=== PATIENT | female | born 1985 | race African-American/Black ===

== ENCOUNTER 2016-12-07 18:27 | Emergency (ER) | payer SELFPAY ==
[~2016-12-07] VITALS: Ht 162.6 cm; Wt 62.0 kg
[2016-12-07 18:28] VITALS: BP 122/67; PULSE 84; RESP 14; TEMP 98.1; O2SAT 97
[2016-12-07] MEDS ORDERED: AMOX500T PO (20:09)
--- NOTE | 2016-12-07 20:12 | PD ---
HPI Chief Complaint: Cold / Flu Symptoms Time Seen by Provider: 20:10 Travel History International Travel<30 days: No Contact w/Intl Traveler<30days: No Traveled to known affect area: No History of Present Illness HPI 30-year-old black female presents to emergency department requesting evaluation of sore throat. She states that she's been sick since Friday. She has had subjective fever and chills, earache, sore throat, congestion and general malaise. She denies any shortness of breath or wheezing. No nausea vomiting. No bowel pain or diarrhea. She states that this is similar symptoms that she has had strep throat in the past. PFSH Past Medical History Arthritis: Yes (BACK PROBLEMS) Bipolar Disorder: Yes Anxiety: Yes Depression: Yes Diabetes: No Diminished Hearing: No GERD: Yes Hepatitis: Yes (B) Psychiatric: Yes (PTSD, INTERMITTENTLY COMPLIANT W/ MEDS) Reproductive: Yes (ENDOMETRIOSIS) Immunizations Current: No Migraines: Yes ?: Not : 2 Para: 2 Miscarriage: 0 : 0 Tubal Ligation: Yes Past Surgical History Other Surgery: Yes (CYSTECTOMY LEFT WRIST) Social History Alcohol Use: No Tobacco Use: Yes (11/25 PPD) Substance Use: Yes (MARIJUANA) Allergies-Medications (Allergen,Severity, Reaction): Coded Allergies: Haldol (Verified Allergy, Severe, 12/07/16) JAW LOCKS UP Uncoded Allergies: FISH (Allergy, Severe, Nausea/Vomiting, 04/10/15) VOMITING AND DIARRHEA Reported Meds & Prescriptions Reported Meds & Active Scripts Active No Active Prescriptions or Reported Medications Review of Systems Except as stated in HPI: all other systems reviewed are Neg Physical Exam Narrative GENERAL: Well-developed, well-nourished in no acute distress. Nontoxic appearing. HEAD: Normocephalic, atraumatic. EYES: Pupils equal round and reactive. Extraocular motions intact. No scleral icterus. No injection or drainage. ENT: TMs clear without erythema. The external auditory canals clear. Nose: clear . Posterior pharynx is erythematous and moist. Positive tonsillar edema with white exudate. Uvula midline. Airway patent. NECK: Trachea midline.Supple, nontender, moves head freely. No central bony tenderness or spasm. Positive tonsillar and cervical adenopathy. CARDIOVASCULAR: Regular rate and rhythm without murmurs, gallops, or rubs. RESPIRATORY: Clear to auscultation. Breath sounds equal bilaterally. No wheezes , rales, or rhonchi. GASTROINTESTINAL: Abdomen soft, non-tender, nondistended. No hepato-splenomegaly , or palpable masses. No guarding. EXTREMITIES: No clubbing, cyanosis, or edema. No joint tenderness, effusion, or edema noted. BACK: Nontender without deformity or crepitance. No flank tenderness. Data Data Last Documented VS Vital Signs Date Time Temp Pulse Resp B/P Pulse Ox O2 Delivery O2 Flow Rate FiO2 12/07/16 18:28 98.1 84 14 122/67 97 MDM Medical Decision Making Medical Screen Exam Complete: Yes Emergency Medical Condition: Yes Medical Record Reviewed: Yes Differential Diagnosis MDM: High Differential diagnoses: Strep throat, viral pharyngitis, mono, peritonsillar abscess, retropharyngeal abscess, Tony's angina Narrative Course This is acute pharyngitis Diagnosis Primary Impression: Acute pharyngitis Qualified Code: J02.9 - Acute pharyngitis, unspecified etiology Patient Instructions: General Instructions Additional Instructions: Rest. Force fluids. Saltwater gargles. Tylenol and Advil. Chloraseptic [place] Cepastat lozenge. Amoxicillin. Follow-up with a primary care doctor in one week. Return to the ER if any problems. Med/Other Pt SpecificInfo: Prescription(s) given Scripts Amoxicillin 500 Mg Tab1,000 Mg PO BID #40 TAB Prov:Khang Newberry MD 12/07/16 Disposition: 01 DISCHARGE HOME Condition: Stable Adelso Edwards Dec 07, 2016 20:12
== END 2016-12-07 20:40 | disposition home or self-care (01) ==
LOC: NEPB 18:27
DX: J02.9 Acute pharyngitis, unspecified (principal); H92.09 Otalgia, unspecified ear; F17.210 Nicotine dependence, cigarettes, uncomplicated; F12.90 Cannabis use, unspecified, uncomplicated
CPT/HCPCS: 99282